=== PATIENT | male | born 1995 | race Caucasian/White ===

== ENCOUNTER 2018-06-15 16:54 | Emergency (ER) | payer OTHER ==
--- NOTE | 2018-06-15 18:06 | EDPHY ---
H & P Stated Complaint: CONFUSION, HEAD 'FOGGINESS' SINCE THURSDAY Time Seen by Provider: 06/15/18 17:13 HPI/ROS: CHIEF COMPLAINT: Confusion, lack of concentration HISTORY OF PRESENT ILLNESS: 22-year-old male presents with confusion and lack of concentration. Over the last couple days he has had episodes of feeling confused. For instance, today he went to an appointment and for forgot the address. Difficulty concentrating on his class work. Started Zoloft a few weeks ago, increased dose 2 weeks ago. Strong family history of diabetes, concern for diabetes. No recent head injury and no headache. REVIEW OF SYSTEMS: complete 10 point ROS reviewed and is negative except for the noted elements in the HPI - Personal History Current Tetanus/Diphtheria Vaccine: Yes - Medical/Surgical History Hx Asthma: No Hx Chronic Respiratory Disease: No Hx Diabetes: No Hx Cardiac Disease: No Hx Renal Disease: No Hx Cirrhosis: No Hx Alcoholism: No Hx HIV/AIDS: No Hx Splenectomy or Spleen Trauma: No - Family History Significant Family History: Diabetes - Social History Smoking Status: Never smoked Alcohol Use: Rarely Drug Use: None - Physical Exam Exam: General Appearance: Alert, pleasant Eyes: Pupils equal and round, no conjunctival pallor ENT, Mouth: Mucous membranes moist Neck: Normal inspection Respiratory: Lungs are clear to auscultation Cardiovascular: Regular rate and rhythm Gastrointestinal: Abdomen is soft and nontender Neurological: Alert, oriented x3, cranial nerves II through XII intact, motor 5 /5, sensory intact to light touch, normal gait. Skin: Warm and dry Extremities: Normal inspection Psychiatric: Mood and affect normal Constitutional: Initial Vital Signs Temperature (C) 36.9 C 06/15/18 17:01 Heart Rate 96 06/15/18 17:01 Respiratory Rate 12 06/15/18 17:01 Blood Pressure 158/75 H 06/15/18 17:01 O2 Sat (%) 97 06/15/18 17:01 O2 Delivery Mode Room Air Allergies/Adverse Reactions: No Known Allergies Allergy (Unverified 10/05/17 23:13) Home Medications: Medication Instructions Recorded Isotretinoin 10/05/17 Penicillin VK 10/05/17 Medical Decision Making ED Course/Re-evaluation: Lack of concentration and mental fogginess most likely secondary to Zoloft. No h/o drug/alcohol abuse and no evidence of infection. Neuro exam normal and I do not suspect intracranial abnormality. Labs normal, including glucose, d/w pt. The patient will call his psychiatrist in the morning to discuss lower in the dosage and/or changing medications. Differential Diagnosis: includes though not limited to hypoglycemia, infectious, electrolyte abn, intracranial pathology, intoxicants, medication effect - Data Points Laboratory Results: Laboratory Results 06/15/18 18:10 06/15/18 18:10 Departure - Departure Disposition: Home, Routine, Self-Care Clinical Impression: Lack of concentration Condition: Good Instructions: Altered Mental Status (ED) Additional Instructions: Your blood sugar is normal today. I suspect that your difficulty concentrating is related to Zoloft. Your white blood cell count is slightly elevated today. An elevated WBC count can signify an infection. You do not have signs of infection today. Have your CBC rechecked as an outpatient. Return for worsening symptoms or any concerns. Referrals: Libertad Beasley MD [Medical Doctor] - As per Instructions
[2018-06-15 18:31] LABS: PLATELET COUNT 343 10^3/uL (150-400)
[2018-06-15 19:07] VITALS: BP 142/85
== END 2018-06-15 19:06 | disposition home or self-care (01) ==
DX: R41.82 Altered mental status, unspecified (principal); E11.9 Type 2 diabetes mellitus without complications; Z79.899 Other long term (current) drug therapy; Z79.4 Long term (current) use of insulin
CPT/HCPCS: 80305; G0480